=== PATIENT | male | born 1970 | race Caucasian/White ===

== ENCOUNTER 2021-10-06 18:39 | Emergency (ER) | payer BC ==
[~2021-10-06] VITALS: Ht 175.3 cm; Wt 70.3 kg
[2021-10-06 19:49] VITALS: BP 159/105
--- NOTE | 2021-10-06 21:11 | NUR ---
PER TED, PT LEFT WITHOUT BEING SEEN AT THIS TIME.
--- NOTE | 2021-10-06 21:11 | NUR ---
PATIENT LEFT WITHOUT BEING SEEN BY DR. MCDERMOTT. NO FURTHER CARE PROVIDED FOR PATIENT.
== END 2021-10-06 21:11 | disposition left against medical advice (07) ==
LOC: MED 18:39
DX: M79.602 Pain in left arm (principal); Z53.21 Procedure and treatment not carried out due to patient leaving prior to being seen by health care provider